=== PATIENT | female | born 1980 | race Caucasian/White ===

== ENCOUNTER 2019-03-07 21:40 | Emergency (ER) | payer OTHER ==
[~2019-03-07] VITALS: Ht 162.6 cm; Wt 90.7 kg
[2019-03-08] MEDS ORDERED: CLINDAMYCIN HC300 MG PO (01:11)
[2019-03-08] MEDS ORDERED: NORCO 5-325 TA1 EACH PO (01:11)
[2019-03-08 01:42] VITALS: BP 154/74
== END 2019-03-08 01:43 | disposition home or self-care (01) ==
LOC: ER 21:40
DX: L03.011 Cellulitis of right finger (principal); G56.03 Carpal tunnel syndrome, bilateral upper limbs; F17.200 Nicotine dependence, unspecified, uncomplicated